=== PATIENT | female | born 1950 | race Caucasian/White ===

== ENCOUNTER 2025-07-20 08:49 | Outpatient (CLI) | payer MEDICARE, SELFPAY | END 2025-07-20 08:50 | disposition home or self-care (01) | LOC: INJ CL 08:54 | PROVIDERS: PCP Family Medicine; Visit Provider Family Medicine | DX: M54.16 Radiculopathy, lumbar region (principal); M51.369 Other intervertebral disc degeneration, lumbar region without mention of lumbar back pain or lower extremity pain | CPT/HCPCS: 64483; J1100; Q9966 ==